=== PATIENT | male | born 1985 | race African-American/Black ===

== ENCOUNTER 2024-12-21 08:05 | Inpatient (IN) | payer OTHER ==
[~2024-12-21] VITALS: Ht 177.8 cm; Wt 129.3 kg
[2024-12-21 08:20] VITALS: TEMP 97.7
[2024-12-21] MEDS: SODIUM CHLORIDE 0.9% 1000ML 1,000 ML IV ONE (09:40)
[2024-12-21] MEDS ORDERED: IOPAMIDOL 370 MG/ML 100 ML INFUS..BTL INJ ONE (13:28)
[2024-12-21] MEDS: D5.45%NS/KCL 20MEQ 1,000 ML IV SCH (14:00)
[2024-12-21 14:37] VITALS: PULSE 74; RESP 18
[2024-12-21] MEDS ORDERED: MULTI-VITAMIN1 EACH PO (18:14)
[2024-12-21 19:45] VITALS: BP 134/83; PULSE 86; RESP 20; TEMP 99.1; O2SAT 96
[2024-12-21 20:00] VITALS: BP 134/83; PULSE 86; RESP 20; TEMP 99.1; O2SAT 96
[2024-12-21 23:40] VITALS: BP 145/85; PULSE 79; RESP 20; TEMP 98.6; O2SAT 97
[2024-12-22 04:30] VITALS: BP 134/89; PULSE 70; RESP 18; TEMP 98.1; O2SAT 98
[2024-12-22 06:31] LABS: BASOPHILS % 0.3 % (0.0-1.0); EOSINOPHILS # (AUTO) 0.3 (0.0-0.4); EOSINOPHILS % 4.7 % (0.0-6.0); HEMATOCRIT 45.4 % (38.2-49.6); HEMOGLOBIN 15.1 g/dL (14.0-18.0); LYMPHOCYTES # (AUTO) 1.9 (1.0-3.2); LYMPHOCYTES % 30.5 % (18.0-39.1); MEAN CORPUSCULAR HEMOGLOBIN 28.2 pg (28-32); MEAN CORPUSCULAR HGB CONC 33.3 g/dL (31-35); MEAN CORPUSCULAR VOLUME 84.7 fL (81-99); MONOCYTES # (AUTO) 0.6 (0.2-0.8); MONOCYTES % 9.5 % (4.4-11.3); NEUTROPHILS # (AUTO) 3.4 (2.1-6.9); NEUTROPHILS % 54.8 % (38.7-80.0); PLATELET COUNT 302 x10e3/uL (140-360); RED BLOOD COUNT 5.36 x10e6/uL (4.3-5.7); RED CELL DISTRIBUTION WIDTH 14.4 % (11.7-14.4); WHITE BLOOD COUNT 6.22 x10e3/uL (4.8-10.8)
[2024-12-22 06:49] LABS: ANION GAP 12.2 mmol/L (8-16); CALCIUM 8.5 mg/dL (8.4-10.2); CREATININE, SERUM 1.23 mg/dL (0.72-1.25); POTASSIUM 4.2 mmol/L (3.5-5.1)
[2024-12-22 08:08] VITALS: BP 139/84; PULSE 79; RESP 18; TEMP 98; O2SAT 97
[2024-12-22] MEDS ORDERED: ROCURONIUM BROMIDE 1 ML IV ONE ×3 (08:47→11:04)
[2024-12-22] MEDS ORDERED: SUCCINYLCHOLINE CHLORIDE 20 MG/ML 10ML VIAL ONE (08:47)
[2024-12-22] MEDS ORDERED: FENTANYL CITRATE/PF 100MCG/2 ML INJ ONE (08:47)
[2024-12-22] MEDS ORDERED: LIDOCAINE HCL 2% LOCAL INJ 5 ML SDV VIAL INJ ONE (08:47)
[2024-12-22] MEDS ORDERED: PROPOFOL IV EMULSION 10 MG/ML 20 ML VIAL ONE (08:48)
[2024-12-22] MEDS ORDERED: HYDROMORPHONE 2MG/ML ONE (09:15)
[2024-12-22] MEDS ORDERED: ACETAMINOPHEN 1000 MG/100 ML 100 ML IV ONE (09:52)
[2024-12-22] MEDS ORDERED: SUGAMMADEX SODIUM 200 MG/2 ML VIAL IV ONE ×3 (10:01→12:21)
[2024-12-22] MEDS ORDERED: Morphine 4mg INJECTION 4 MG/ML INJ IV PRN (12:45)
[2024-12-22] MEDS ORDERED: ONDANSETRON HCL INJ 2MG/ML 2ML 2 MG/ML VIAL ONE ×2 (12:47→13:04)
[2024-12-22] MEDS ORDERED: METOCLOPRAMIDE HCL 10 MG/2ML VIAL ONE ×2 (12:47→13:04)
[2024-12-22] MEDS ORDERED: KETOROLAC TROMETHAMINE 30 MG/ML VIAL ONE ×2 (12:47→13:04)
[2024-12-22] MEDS ORDERED: DEXAMETHASONE SOD PHOS INJ 4 MG/ML SDV ONE ×2 (12:47→13:04)
[2024-12-22] MEDS ORDERED: HYDRALAZINE HCL 20 MG/ML VIAL IV PRN (14:45)
[2024-12-22] MEDS ORDERED: ONDANSETRON HCL INJ 2MG/ML 2ML 2 MG/ML VIAL IV PRN (14:45)
[2024-12-22 16:36] VITALS: BP 131/78; PULSE 78; RESP 20; TEMP 98; O2SAT 99
[2024-12-22] MEDS: HYDROCODONE/APAP 7.5MG-325MG 1 EA TAB PO PRN (18:24)
[2024-12-22 20:00] VITALS: BP_SYST 131; BP_SYST 148; BP_DIAS 78; BP_DIAS 85; PULSE 77; PULSE 78; RESP 20; TEMP 98; O2SAT 99
[2024-12-23] VITALS (9 sets, daily range): BP systolic 132–175; BP diastolic 87–95; PULSE 84–101; RESP 19–23; TEMP 97.6–99.7; O2SAT 95–98
[2024-12-24] VITALS (8 sets, daily range): BP systolic 138–163; BP diastolic 89–101; PULSE 74–100; RESP 16–20; TEMP 98.2–100.9; O2SAT 95–99
[2024-12-24] MEDS ORDERED: LACTULOSE SYRUP 20 GM/30 ML UDC PO PRN (08:45)
[2024-12-24 09:35] LABS: BASOPHILS % 0.1 % (0.0-1.0); EOSINOPHILS % 0.2 % (0.0-6.0); HEMATOCRIT 42.8 % (38.2-49.6); HEMOGLOBIN 14.3 g/dL (14.0-18.0); LYMPHOCYTES # (AUTO) 1.4 (1.0-3.2); LYMPHOCYTES % 12.2 % (18.0-39.1); MEAN CORPUSCULAR HEMOGLOBIN 28.1 pg (28-32); MEAN CORPUSCULAR HGB CONC 33.4 g/dL (31-35); MEAN CORPUSCULAR VOLUME 84.3 fL (81-99); MONOCYTES % 9.3 % (4.4-11.3); NEUTROPHILS # (AUTO) 8.6 (2.1-6.9); NEUTROPHILS % 77.9 % (38.7-80.0); PLATELET COUNT 280 x10e3/uL (140-360); RED BLOOD COUNT 5.08 x10e6/uL (4.3-5.7); RED CELL DISTRIBUTION WIDTH 14.6 % (11.7-14.4); WHITE BLOOD COUNT 11.04 x10e3/uL (4.8-10.8)
[2024-12-24 09:39] LABS: ANION GAP 13.1 mmol/L (8-16); CALCIUM 8.9 mg/dL (8.4-10.2); CREATININE, SERUM 0.92 mg/dL (0.72-1.25); POTASSIUM 4.1 mmol/L (3.5-5.1)
[2024-12-24] MEDS: TRIMETHOPRIM/SULFAMETHOXAZOLE 160-800 MG TAB PO SCH (11:11)
[2024-12-24] MEDS ORDERED: ENULOSE10 GM/15 M PO (13:37)
[2024-12-24] MEDS ORDERED: ULTRAM 50MG50 MG PO (13:37)
[2024-12-24] MEDS ORDERED: Trimethoprim/Sulfamethoxazole PO (14:17)
[2024-12-25] VITALS (7 sets, daily range): BP systolic 116–157; BP diastolic 82–90; PULSE 79–95; RESP 16–20; TEMP 98.1–98.6; O2SAT 95–100
== END 2024-12-25 16:15 | disposition home or self-care (01) | DRG 351 ==
LOC: FSED 08:31 → ERHOLD 13:10 → MED/SURG2 16:27
PROVIDERS: ADMIT Internal Medicine; ATTEND Internal Medicine
PROC: 0YQ50ZZ Repair Right Inguinal Region, Open Approach (ICD-10-PCS; principal; 2024-12-22 09:09)
PROC: 0WUF0JZ Supplement Abdominal Wall with Synthetic Substitute, Open Approach (ICD-10-PCS; 2024-12-22 09:09)
DX: K42.0 Umbilical hernia with obstruction, without gangrene (principal); K40.30 Unilateral inguinal hernia, with obstruction, without gangrene, not specified as recurrent; I10 Essential (primary) hypertension; F17.200 Nicotine dependence, unspecified, uncomplicated; N32.89 Other specified disorders of bladder
CPT/HCPCS: 36415; 74177; 80048; 80053; 81003; 85025; 94799; 99284; C1781; J0330; J1100; J1171; J1885; J2003; J2405; J2543; J2765; J7030; Q9967